=== PATIENT | male | born 1965 | race Hispanic/Latino ===

== ENCOUNTER 2018-03-14 22:23 | Emergency (ER) | payer BC ==
[2018-03-14] MEDS ORDERED: ONDANSETRON 4 MG/2 ML VIAL ONE (23:24)
[2018-03-14] MEDS ORDERED: NA CHLORIDE 0.9% 1,000 ML ONE (23:24)
[2018-03-14] MEDS ORDERED: MORPHINE 4 MG/ML SYR ONE (23:24)
[2018-03-14 23:39] LABS: Absolute Lymphocytes (CBC) 0.8 K/uL (0.7-4.9); Absolute Monocytes 0.5 K/uL (0.1-1.3); Absolute Neutrophil 6.4 K/uL (1.8-8.0); Basophils % 0.3 % (0-1.3); Eosinophils % 0.9 % (0-4.4); Hematocrit 43.5 % (39.6-49.0); Lymphocytes % 10.2 % (15.3-44.8); MCH 29.9 pg (27.0-35.0); MCV 89.9 fL (80-100); MPV 10.2 fL (7.6-11.3); Monocytes % 5.9 % (3.3-12.3); RBC Red Blood Cell Count 4.84 M/uL (4.33-5.43)
[2018-03-14 23:57] LABS: Albumin 3.7 g/dL (3.4-5.0); Bilirubin Direct 0.2 mg/dL (0-0.2); Bilirubin Total 0.6 mg/dL (0.2-1.0); Potassium 3.9 mmol/L (3.5-5.1); Protein, Total 7.3 g/dL (6.4-8.2)
--- NOTE | 2018-03-15 01:40 | EDPHYS ---
Physician Documentation [facility] Name: Sotero Em Age: 52 yrs Sex: Male : 1965 Arrival Date: 03/14/2018 Time: 22:26 Bed 6 Private MD: Yandel Mireles H ED Physician Ryland Ag HPI: 03/14 23:25 This 52 yrs old Male presents to ER via Ambulatory with complaints of Nausea, ma2 Diarrhea, Epigastric Pain. 23:25 The patient presents to the emergency department with nausea, diarrhea, abdominal pain. ma2 Onset: The symptoms/episode began/occurred gradually, 2 day(s) ago. Associated signs and symptoms: Pertinent positives: abdominal pain, diarrhea, nausea, Pertinent negatives: anorexia, constipation, fever, GI bleeding, hematuria. Severity of symptoms: At their worst the symptoms were moderate severe in the emergency department the symptoms are unchanged. The patient has experienced a previous episode. Historical: - Allergies: 22:47 No Known Allergies; bp - Home Meds: 22:47 Dexilant 60 mg oral CpDB 1 cap once daily [Active]; bp - PMHx: 22:47 Pancreatitis; High Cholesterol; bp - Immunization history:: Adult Immunizations up to date. - Social history:: Smoking status: Patient/guardian denies using tobacco, Patient/guardian denies using alcohol, Patient/guardian denies using alcohol, street drugs, The patient lives with family. - Ebola Screening: : Patient negative for fever greater than or equal to 101.5 degrees Fahrenheit, and additional compatible Ebola Virus Disease symptoms Patient denies exposure to infectious person Patient denies travel to an Ebola-affected area in the 21 days before illness onset No symptoms or risks identified at this time. - Family history:: not pertinent. ROS: 23:25 Constitutional: Negative for fever, chills, and weight loss. ma2 23:25 Abdomen/GI: Positive for nausea and vomiting, diarrhea, Negative for abdominal cramps, anorexia, rectal pain, flatulence. 23:25 All other systems are negative. Exam: 23:25 Constitutional: This is a well developed, well nourished patient who is awake, alert, ma2 and in no acute distress. Chest/axilla: Normal chest wall appearance and motion. Nontender with no deformity. No lesions are appreciated. Cardiovascular: Regular rate and rhythm with a normal S1 and S2. No gallops, murmurs, or rubs. Normal PMI, no JVD. No pulse deficits. Respiratory: Lungs have equal breath sounds bilaterally, clear to auscultation and percussion. No rales, rhonchi or wheezes noted. No increased work of breathing, no retractions or nasal flaring. MS/ Extremity: Pulses equal, no cyanosis. Neurovascular intact. Full, normal range of motion. Neuro: Awake and alert, GCS 15, oriented to person, place, time, and situation. Cranial nerves II-XII grossly intact. Motor strength 5/5 in all extremities. Sensory grossly intact. Cerebellar exam normal. Normal gait. 23:25 Abdomen/GI: Inspection: abdomen appears normal, Palpation: severe abdominal tenderness, in the right upper quadrant and left upper quadrant, Liver: no appreciated palpable abnormalities, Hernia: not appreciated. Vital Signs: 22:47 BP 137 / 94; Pulse 87; Resp 18; Temp 97; Pulse Ox 97% ; Weight 81.65 kg; Height 5 ft. 7 bp in. (170.18 cm); 23:31 BP 122 / 88; Pulse 72; Resp 16; Pulse Ox 95% ; bp 03/15 01:56 BP 119 / 78; Pulse 66; Resp 14; Temp 98.6; Pulse Ox 98% on R/A; Pain 0/10; ak1 03/14 22:47 Body Mass Index 28.19 (81.65 kg, 170.18 cm) bp MDM: 03/14 22:47 Patient medically screened. ma2 23:25 Differential diagnosis: gastritis, cholecystitis, pancreatitis, appendicitis, viral ma2 gastroenteritis, gastroenteritis. 03/15 01:37 Data reviewed: vital signs, nurses notes, lab test result(s), radiologic studies, CT ma2 scan. Counseling: I had a detailed discussion with the patient and/or guardian regarding: the historical points, exam findings, and any diagnostic results supporting the discharge/admit diagnosis, the presence of at least one elevated blood pressure reading (>120/80) during this emergency department visit, the need for outpatient follow up. Response to treatment: the patient's symptoms have markedly improved after treatment. ED course: ct showing diverticulitis, WBC wnl, vs wnl, feels better and wants to go home and will f/u with gi, although ct showing possible early SBO, this is not likely given no vomiting, he will return to ed if having any new or worsening symptoms . 03/14 23:30 Order name: Basic Metabolic Panel; Complete Time: 23:59 EDMS 03/14 23:11 Order name: CT Abd/Pelvis - W/Contrast ma2 03/14 23:30 Order name: Liver (Hepatic) Function; Complete Time: 23:59 EDMS 03/14 23:30 Order name: Lipase; Complete Time: 23:59 EDMS 03/14 23:30 Order name: Creatinine (Radiology Only); Complete Time: 23:59 EDMS 03/14 23:30 Order name: CBC with Automated Diff; Complete Time: 23:59 EDMS 03/14 22:58 Order name: IV Saline Lock; Complete Time: 23:12 ma2 03/14 22:58 Order name: Labs collected and sent; Complete Time: 23:13 ma2 Administered Medications: 03/14 23:15 Drug: NS 0.9% 1000 ml Route: IV; Rate: 1 bolus; Site: right upper arm; bp 03/15 01:50 Follow up: IV Status: Completed infusion ak1 03/14 23:15 Drug: morphine 4 mg Route: IVP; Site: right upper arm; bp 23:30 Follow up: Response: Pain is decreased bp 23:15 Drug: Zofran 4 mg Route: IVP; Site: right upper arm; bp 23:30 Follow up: Response: Nausea is decreased bp Disposition: 03/15/18 01:39 Discharged to Home. Impression: Diverticulitis of large intestine without perforation or abscess without bleeding. - Condition is Stable. - Discharge Instructions: Diverticulitis, Form - Excuse from Work, School, or Physical Activity, Form - Return To Work. - Prescriptions for Flagyl 500 mg Oral Tablet - take 4 tablet by ORAL route one time for 1 day; 4 tablet. Tylenol- Codeine #3 300-30 mg Oral Tablet - take 2 tablet by ORAL route every 6 hours As needed; 30 tablet. Cipro 500 mg Oral Tablet - take 1 tablet by ORAL route every 12 hours for 7 days; 14 tablet. - Family Work Release, Medication Reconciliation Form, Thank You Letter, Antibiotic Education, Prescription Opioid Use form. - Follow up: Private Physician; When: Tomorrow; Reason: Continuance of care. - Problem is new. - Symptoms have improved. Signatures: Dispatcher [employer] EDNC Luciana Yip RN RN ak1 Bill Corona RN RN Ryland Liriano MD MD ma2 Corrections: (The following items were deleted from the chart) 23:46 23:33 BASIC METABOLIC PANEL+C.LAB.BRZ ordered. EDMS EDMS 23:46 23:33 HEPATIC FUNCTION+C.LAB.BRZ ordered. EDMS EDMS 23:47 23:33 CBC+H.LAB.BRZ ordered. EDMS EDMS 23:47 23:33 Creatinine for Radiology+C.LAB.BRZ ordered. EDMS EDMS 23:48 23:33 LIPASE+C.LAB.BRZ ordered. EDNC EDMS 03/15 01:56 01:39 03/15/2018 01:39 Discharged to Home. Impression: Diverticulitis of large ak1 intestine without perforation or abscess without bleeding. Condition is Stable. Forms are Medication Reconciliation Form, Thank You Letter, Antibiotic Education, Prescription Opioid Use. Follow up: Private Physician; When: Tomorrow; Reason: Continuance of care. Problem is new. Symptoms have improved. ma2
--- NOTE | 2018-03-15 01:40 | ER ---
Nurse's Notes [facility] Name: Sotero Em Age: 52 yrs Sex: Male : 1965 Arrival Date: 03/14/2018 Time: 22:26 Bed 6 Private MD: Yandel Mireles H Diagnosis: Diverticulitis of large intestine without perforation or abscess without bleeding Presentation: 03/14 22:30 Presenting complaint: Patient states: EPIGASTRIC PAIN WITH FREQUENT VOMITING AND bp DIARRHEA. Transition of care: patient was not received from another setting of care. Onset of symptoms was March 14, 2018 at 21:00. Risk Assessment: Do you want to hurt yourself or someone else? Patient reports no desire to harm self or others. Initial Sepsis Screen: Does the patient meet any 2 criteria? No. Patient's initial sepsis screen is negative. Does the patient have a suspected source of infection? No. Patient's initial sepsis screen is negative. Care prior to arrival: None. 22:30 Method Of Arrival: Ambulatory bp 22:30 Acuity: YOSEPH 3 bp Triage Assessment: 22:47 General: Appears in no apparent distress. uncomfortable, slender, Behavior is bp cooperative, appropriate for age, anxious. Pain: Complains of pain in epigastric area. EENT: No deficits noted. Neuro: Level of Consciousness is awake, alert, obeys commands, Oriented to person, place, time, situation, Appropriate for age. Cardiovascular: Rhythm is sinus rhythm. Respiratory: Airway is patent Respiratory effort is even, unlabored, Respiratory pattern is regular, symmetrical. GI: Abdomen is non-distended, Reports upper abdominal pain, diarrhea, nausea, vomiting. : No signs and/or symptoms were reported regarding the genitourinary system. Derm: No deficits noted. Musculoskeletal: Circulation, motion, and sensation intact. Range of motion: intact in all extremities. Historical: - Allergies: 22:47 No Known Allergies; bp - Home Meds: 22:47 Dexilant 60 mg oral CpDB 1 cap once daily [Active]; bp - PMHx: 22:47 Pancreatitis; High Cholesterol; bp - Immunization history:: Adult Immunizations up to date. - Social history:: Smoking status: Patient/guardian denies using tobacco, Patient/guardian denies using alcohol, Patient/guardian denies using alcohol, street drugs, The patient lives with family. - Ebola Screening: : Patient negative for fever greater than or equal to 101.5 degrees Fahrenheit, and additional compatible Ebola Virus Disease symptoms Patient denies exposure to infectious person Patient denies travel to an Ebola-affected area in the 21 days before illness onset No symptoms or risks identified at this time. - Family history:: not pertinent. Screenin:50 Abuse screen: Denies threats or abuse. Denies injuries from another. Nutritional bp screening: No deficits noted. Tuberculosis screening: No symptoms or risk factors identified. Fall Risk None identified. Assessment: 22:49 General: SEE TRIAGE NOTE. 52YO HM P/W EPIGASTRIC PAIN AND NAUSEA, VOMITING AND bp DIARRHEA, WORSE x1 HR. PT RECENTLY SEEN GI AND DX WITH PANCREATITIS. Vital Signs: 22:47 BP 137 / 94; Pulse 87; Resp 18; Temp 97; Pulse Ox 97% ; Weight 81.65 kg; Height 5 ft. 7 bp in. (170.18 cm); 23:31 BP 122 / 88; Pulse 72; Resp 16; Pulse Ox 95% ; bp 03/15 01:56 BP 119 / 78; Pulse 66; Resp 14; Temp 98.6; Pulse Ox 98% on R/A; Pain 0/10; ak1 03/14 22:47 Body Mass Index 28.19 (81.65 kg, 170.18 cm) bp ED Course: 03/14 22:26 Patient arrived in ED. am2 22:26 Yandel Mireles DO is Private Physician. am2 22:41 Ryland Ag MD is Attending Physician. ma2 22:44 Bill Corona, MABLE is Primary Nurse. bp 22:45 Triage completed. bp 22:47 Arm band placed on. bp 22:50 Patient has correct armband on for positive identification. Bed in low position. Call bp light in reach. Side rails up X2. Adult w/ patient. 23:00 Inserted saline lock: 20 gauge in right upper arm, using aseptic technique. Blood bp collected. 03/15 00:[address] via wheelchair. kw1 00:25 CT Abd/Pelvis - W/Contrast In Process Unspecified. EDMS 00:26 CT completed. Patient tolerated procedure well. Patient moved back from CT. kw1 01:40 No provider procedures requiring assistance completed. bp 01:49 IV discontinued, intact, bleeding controlled, No redness/swelling at site. Pressure ak1 dressing applied. Administered Medications: 03/14 23:15 Drug: NS 0.9% 1000 ml Route: IV; Rate: 1 bolus; Site: right upper arm; bp 03/15 01:50 Follow up: IV Status: Completed infusion ak1 03/14 23:15 Drug: morphine 4 mg Route: IVP; Site: right upper arm; bp 23:30 Follow up: Response: Pain is decreased bp 23:15 Drug: Zofran 4 mg Route: IVP; Site: right upper arm; bp 23:30 Follow up: Response: Nausea is decreased bp Outcome: 03/15 01:39 Discharge ordered by . angelia 01:49 Discharged to home ambulatory, with family. ak1 01:49 Condition: good 01:49 Discharge instructions given to patient, family, Instructed on discharge instructions, follow up and referral plans. no drinking with medication, no driving heavy equipment, medication usage, Demonstrated understanding of instructions, follow-up care, medications, Prescriptions given X 3. 01:56 Patient left the ED. ak1 Signatures: Dispatcher [employer] EDMS Luciana Yip RN RN ak1 Emani Alex Brian, RN RN bp Wilhelm, Kimberly kw1 Ryland Ag MD MD ma2
--- NOTE | 2018-03-15 08:45 | RAD REPORT ---
EXAM DESCRIPTION: CT - Abdomen Pelvis W Contrast - 03/15/2018 4:00 am CLINICAL HISTORY: Abdominal pain epigastric pain and diarrhea COMPARISON: 2015 TECHNIQUE: Computed axial tomography of the abdomen pelvis was obtained. 100 cc Isovue-300 was admin istered intravenously. Oral contrast was not requested which limits evaluation of bowel.Preliminary r eport was generated by [employer] and reviewed prior to this dictation All CT scans are performed using dose optimization technique as appropriate and may include automated exposure control or mA/KV adjustment according to patient size. FINDINGS: Fatty infiltration of the liver is present. A 27 millimeters cyst is minimally enlarged. The spleen, pancreas and adrenals are unremarkable. The right kidney is small with cortical thinning. 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 The left kidney is compensatory hypertrophy. Small parapelvic cysts are present without hydronephrosi s. The appendix is normal. Diverticula stem from the colon. Minimal stranding is present adjacent to the proximal sigmoid colon. Free air is not noted. An abscess is not seen. The stomach is mildly distended. Several small bowel loops are upper limits normal caliber. IMPRESSION: Minimal sigmoid diverticulitis Mild gastric distention
== END 2018-03-15 01:56 | disposition home or self-care (01) ==
LOC: ER 22:23
DX: K57.32 Diverticulitis of large intestine without perforation or abscess without bleeding (principal); E78.00 Pure hypercholesterolemia, unspecified
CPT/HCPCS: 36415; 74177; 80048; 80076; 83690; 85025; 96361; 96374; 96375; 99285; J2405; J7030; Q9967

== ENCOUNTER 2018-05-09 10:14 | Day surgery (SDC) | payer BC ==
--- NOTE | 2018-05-06 11:08 | RAD REPORT ---
EXAM DESCRIPTION: RAD - Chest Pa And Lat (2 Views) - 05/06/2018 11:02 am CLINICAL HISTORY: preop Chest pain. COMPARISON: No comparisons FINDINGS: The lungs are clear. The heart is normal in size. No displaced fractures. IMPRESSION: No acute or concerning finding suspected.
[2018-05-06 11:42] LABS: Potassium 4.1 mmol/L (3.5-5.1)
[2018-05-06 11:43] LABS: Absolute Lymphocytes (CBC) 1.3 K/uL (0.7-4.9); Absolute Monocytes 0.5 K/uL (0.1-1.3); Absolute Neutrophil 3.1 K/uL (1.8-8.0); Basophils % 0.5 % (0-1.3); Eosinophils % 1.3 % (0-4.4); Hematocrit 45.4 % (39.6-49.0); Lymphocytes % 26.7 % (15.3-44.8); MCH 30.4 pg (27.0-35.0); MPV 10.4 fL (7.6-11.3); Monocytes % 9.7 % (3.3-12.3)
--- NOTE | 2018-05-06 12:58 | EKG ---
Test Date: 2018-05-06 Test Time: 10:16:56 Scanning Coordinator: MUMTAZ MEASUREMENT RESULTS: Intervals: Rate: 64 AL: 170 QRSD: 92 QT: 368 QTc: 379 Philpot: P: 39 AL: 170 QRS: 74 T: 40 INTERPRETIVE STATEMENTS: Normal sinus rhythm with sinus arrhythmia Normal ECG No previous ECG available for comparison Electronically Signed On 05-06-18 12:57:35 POULTRY HATCHERY MANAGER by Enrique Corbin
[2018-05-09] MEDS ORDERED: CEFAZOLIN/SWI 1gm 1 GM/10 ML SYR ONE (10:44)
[2018-05-09] MEDS ORDERED: Ringers Lactate 1,000 ML IV ONE (10:44)
[2018-05-09] MEDS ORDERED: MIDAZOLAM HCL 2 MG/2 ML INJ ONE (13:46)
[2018-05-09] MEDS ORDERED: PROPOFOL 200 MG/20 ML VIAL IV ONE (13:46)
[2018-05-09] MEDS ORDERED: FENTANYL CITR 100 MCG/2 ML ONE (13:46)
[2018-05-09] MEDS ORDERED: LIDOCAINE 2% MPF 5 ML VIAL ONE (13:47)
[2018-05-09] MEDS ORDERED: GLYCOPYRROLATE 0.2 MG/ML SYR ONE (14:29)
[2018-05-09] MEDS ORDERED: EPHEDRINE SULF 50 MG/10 ML SYR ONE (14:36)
--- NOTE | 2018-05-09 14:43 | P.BOP ---
Preoperative diagnosis: lookback coordinator mass Postoperative diagnosis: lookback coordinator intramuscular mass Primary procedure: Excisional biopsy of back INTRAMUSCULAR mass 10x9.5 cm Spindle Frame Carver: KILEY AHMADI (RN DOCUMENT IMPROVEMENT SPECIALIST) Estimated blood loss: <20cc Specimen: mass Findings: intramuscular mass deep to muscle, fascia of muscle closed Anesthesia: General Complications: None Transferred to: Recovery Room Condition: Good
[2018-05-09] MEDS ORDERED: KETOROLAC 30 MG/ML INJ ONE (14:47)
[2018-05-09] MEDS ORDERED: CODEINE 30MG/APAP 300MG TAB ONE (16:36)
--- NOTE | 2018-05-11 00:51 | OP ---
Date of Procedure: 05/09/2018 Surgeon: Edward Burgos MD Economics Consultant: Karen Sánchez. Diagnosis: covering machine tender intramuscular mass. Procedure: Excisional biopsy of back intramuscular mass 10 x 9.5 cm. Specimen: Mass. Findings: The patient has an intramuscular mass deep to the muscle of the back between the midline a nd the scapula. The fascia was closed also as part of a layered closure. Anesthesia: General. Indications: This is a case of a 52-year-old patient with a back mass, increasing pain, discomfort. It is getting bigger, so the benefits, alternatives, and risks of excision were fully explained, whi ch include but are not limited to infection, bleeding, damage to adjacent structures, anesthesia comp lication, recurrence, AK, and even . He also understands this may not relieve any symptoms. He might need more than one surgical intervention. He signed a consent. The area of concern was marke d by me and the patient in the holding room. Description Of Procedure: The patient was brought to the operating room, placed in supine position. Anesthesia was done without complication. The back area was prepped and draped in usual sterile fas hion after the patient was placed in lateral decubitus position with proper protection. After that, a time-out was called. Incision was made over the area of concern. Incision was carried down to sub cutaneous tissue. We noticed that the patient's mass, it is not in the subcutaneous tissue, it goes into the muscle. We have to open the muscle of the back area between the scapula, split the fibers, not cut it, and then we noticed that 10% of that was intramuscular to 15%, and then after that was ev en deep to muscle to the deep cavities. We were able to split the muscle fibers without cutting and allowed by blunt dissection trying to get this fatty tumor out of that area and it was completely rem antony with hemostasis obtained. After that, we proceeded to approximate the muscle fibers with chromi c and then the fascia was approximated once again, then the subcutaneous tissue, and then the skin in layers. Sponge count and instrument counts were correct. The patient tolerated the procedure well. The patient was sent to recovery in stable condition. ROSA/JACE Voice ID: [id number] Report ID: [id number]
--- NOTE | 2018-05-11 00:51 | DS ---
Date of Discharge: 05/09/2018 Diagnosis: Intramuscular mass. Procedure: Excisional biopsy of intramuscular back mass 10 x 9.5 cm. Disposition: Home. Activity: As tolerated. No heavy lifting. Followup: Follow up in my office in 1 week. Call for appointment on [phone]. Keep area dry for 48 hours, then may shower. Medications: See orders. ROSA/JACE Voice ID: [id number] Report ID: [id number]
== END 2018-05-09 16:56 | disposition home or self-care (01) ==
LOC: OR 10:14
PROVIDERS: ATTEND Surgery
PROC: 0KBG0ZZ Excision of Left Trunk Muscle, Open Approach (ICD-10-PCS; principal; 2018-05-09 12:00)
DX: D17.9 Benign lipomatous neoplasm, unspecified (principal); E78.00 Pure hypercholesterolemia, unspecified; K21.9 Gastro-esophageal reflux disease without esophagitis; Z80.9 Family history of malignant neoplasm, unspecified; Z83.3 Family history of diabetes mellitus; Z82.49 Family history of ischemic heart disease and other diseases of the circulatory system
CPT/HCPCS: 36415; 71046; 80048; 85025; 88304; 88305; 93005; J0690; J2250; J2704; J3010

== ENCOUNTER 2019-03-11 07:05 | Emergency (ER) | payer BC ==
[2019-03-11] MEDS ORDERED: IBUPROFEN 400 MG TAB ONE (07:34)
--- NOTE | 2019-03-11 07:46 | ER ---
Nurse's Notes [facility] Name: Sotero Em Age: 53 yrs Sex: Male : 1965 Arrival Date: 03/11/2019 Time: 07:07 Bed 13 Private MD: Diagnosis: Sprain of right acromioclavicular joint Presentation: 03/11 07:08 Presenting complaint: Patient states: "I fell last night, I was on a 2 ft step stool aa5 and landed onto my right side". Pt c/o pain to right shoulder pain that is aggravated by any movement of right arm. 07:08 Transition of care: patient was not received from another setting of care. Onset of aa5 symptoms was February 2019. Risk Assessment: Do you want to hurt yourself or someone else? Patient reports no desire to harm self or others. Initial Sepsis Screen: Does the patient meet any 2 criteria? No. Patient's initial sepsis screen is negative. Does the patient have a suspected source of infection? No. Patient's initial sepsis screen is negative. Care prior to arrival: None. 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 - Social history:: Smoking status: Patient/guardian denies using tobacco, Patient/guardian denies using alcohol, street drugs, The patient lives with family. - Ebola Screening: : No symptoms or risks identified at this time. - Family history:: not pertinent. Screenin:10 Abuse screen: Denies threats or abuse. Nutritional screening: No deficits noted. rb1 Tuberculosis screening: No symptoms or risk factors identified. Fall Risk Fall in past 12 months (25 points). No secondary diagnosis (0 pts). No IV (0 pts). Ambulatory Aid- None/Bed Rest/Nurse Assist (0 pts). Gait- Normal/Bed Rest/Wheelchair (0 pts) Mental Status- Oriented to own ability (0 pts). Total Reyes Fall Scale indicates Low Risk Score (25-44 pts). Fall prevention measures have been instituted. Side Rails Up X 2 Placed close to Nursing Station 1:1 attendant Assigned to Pt. Frequent Obs/Assesments occuring As available Patient and Family Educated on Fall Prevention Program and strategies. Assessment: 07:10 General: Appears uncomfortable, Behavior is calm, cooperative. Pain: Complains of pain rb1 in right shoulder Pain currently is 9 out of 10 on a pain scale. Pain began 1 day ago. Neuro: Level of Consciousness is awake, alert, obeys commands, Oriented to person, place, time, situation. Cardiovascular: Capillary refill < 3 seconds is brisk in bilateral fingers. Respiratory: Airway is patent Respiratory effort is even, unlabored, Respiratory pattern is regular, symmetrical. GI: No signs and/or symptoms were reported involving the gastrointestinal system. : No signs and/or symptoms were reported regarding the genitourinary system. Derm: Skin is pink, warm \\T\\ dry. Musculoskeletal: Range of motion: limited in right arm. 07:57 Reassessment: Patient appears in no apparent distress at this time. No changes from rb1 previously documented assessment. Vital Signs: 07:10 BP 128 / 87; Pulse 85; Resp 16 S; Temp 98.6(O); Pulse Ox 97% on R/A; Weight 74.84 kg aa5 (R); Height 5 ft. 7 in. (170.18 cm) (R); Pain 7/10; 07:57 BP 128 / 87; Pulse 81; Resp 15; Pulse Ox 97% on R/A; Pain 9/10; rb1 07:10 Body Mass Index 25.84 (74.84 kg, 170.18 cm) aa5 ED Course: 07:07 Patient arrived in ED. ds1 07:08 Arm band placed on Patient placed in an exam room, on a stretcher. aa5 07:10 Patient has correct armband on for positive identification. Bed in low position. Call rb1 light in reach. Side rails up X 1. Pulse ox on. NIBP on. 07:11 Ryland Ag MD is Attending Physician. ma2 07:17 Triage completed. aa5 07:29 Earlene Sandoval, RN is Primary Nurse. rb1 07:31 Shoulder Right (2 View) XRAY In Process Unspecified. EDMS 07:44 Ace Bedoya MD is Referral Physician. ma2 07:58 No provider procedures requiring assistance completed. Patient did not have IV access rb1 during this emergency room visit. Administered Medications: 07:37 Drug: Ibuprofen 400 mg Route: PO; rb1 07:57 Follow up: Response: No adverse reaction rb1 Outcome: 07:46 Discharge ordered by . ma2 07:58 Discharged to home ambulatory. rb1 07:58 Condition: stable 07:58 Discharge instructions given to patient, Instructed on discharge instructions, follow up and referral plans. medication usage, Demonstrated understanding of instructions, follow-up care, medications, Prescriptions given X 1. 07:59 Patient left the ED. rb1 Signatures: Dispatcher [employer] [facility] Yaa Christopher ds1 Lesa Hernandez RN RN aa5 Earlene Sandoval RN RN rb1 Ryland Ag MD MD ma2
--- NOTE | 2019-03-11 07:47 | EDPHYS ---
Physician Documentation [facility] Name: Sotero Em Age: 53 yrs Sex: Male : 1965 Arrival Date: 03/11/2019 Time: 07:07 Bed 13 Private MD: ED Physician Ryland Ag HPI: 03/11 07:29 This 53 yrs old Male presents to ER via Ambulatory with complaints of Fall ma2 Injury, Arm Pain. 07:29 Onset: The symptoms/episode began/occurred suddenly, 1 day(s) ago. Associated injuries: ma2 The patient sustained right arm. Severity of symptoms: At their worst the symptoms were moderate, in the emergency department the symptoms are unchanged. The patient has experienced a previous episode. 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 - Social history:: Smoking status: Patient/guardian denies using tobacco, Patient/guardian denies using alcohol, street drugs, The patient lives with family. - Ebola Screening: : No symptoms or risks identified at this time. - Family history:: not pertinent. ROS: 07:29 Constitutional: Negative for fever, chills, and weight loss, Back: Negative for injury ma2 and pain. 07:29 All other systems are negative. Exam: 07:29 Constitutional: This is a well developed, well nourished patient who is awake, alert, ma2 and in no acute distress. Neck: Trachea midline, no thyromegaly or masses palpated, and no cervical lymphadenopathy. Supple, full range of motion without nuchal rigidity, or vertebral point tenderness. No Meningismus. Chest/axilla: Normal chest wall appearance and motion. Nontender with no deformity. No lesions are appreciated. Cardiovascular: Regular rate and rhythm with a normal S1 and S2. No gallops, murmurs, or rubs. Normal PMI, no JVD. No pulse deficits. Respiratory: Lungs have equal breath sounds bilaterally, clear to auscultation and percussion. No rales, rhonchi or wheezes noted. No increased work of breathing, no retractions or nasal flaring. Abdomen/GI: Soft, non-tender, with normal bowel sounds. No distension or tympany. No guarding or rebound. No evidence of tenderness throughout. Back: No spinal tenderness. No costovertebral tenderness. Full range of motion. Skin: Warm, dry with normal turgor. Normal color with no rashes, no lesions, and no evidence of cellulitis. Neuro: Awake and alert, GCS 15, oriented to person, place, time, and situation. Cranial nerves II-XII grossly intact. Motor strength 5/5 in all extremities. Sensory grossly intact. Cerebellar exam normal. Normal gait. 07:29 Musculoskeletal/extremity: Extremities: right shoulder pain and ttp , ROM: Circulation is intact in all extremities. Pulses: are normal with no appreciated deficits, Sensation intact. DVT Exam: No signs of deep vein thrombosis. Nails: Vital Signs: 07:10 BP 128 / 87; Pulse 85; Resp 16 S; Temp 98.6(O); Pulse Ox 97% on R/A; Weight 74.84 kg aa5 (R); Height 5 ft. 7 in. (170.18 cm) (R); Pain 7/10; 07:57 BP 128 / 87; Pulse 81; Resp 15; Pulse Ox 97% on R/A; Pain 9/10; rb1 07:10 Body Mass Index 25.84 (74.84 kg, 170.18 cm) aa5 MDM: 07:11 Patient medically screened. [facility] 07:29 Differential diagnosis: contusion, fracture, sprain, strain. [facility] 07:43 Data reviewed: vital signs, nurses notes. Counseling: I had a detailed discussion with [facility] the patient and/or guardian regarding: the historical points, exam findings, and any diagnostic results supporting the discharge/admit diagnosis, the presence of at least one elevated blood pressure reading (>120/80) during this emergency department visit, the need for outpatient follow up. Response to treatment: the patient's symptoms have markedly improved after treatment. 03/11 07:15 Order name: Shoulder Right (2 View) XRAY aa5 Administered Medications: 07:37 Drug: Ibuprofen 400 mg Route: PO; rb1 07:57 Follow up: Response: No adverse reaction rb1 Disposition: 03/11/19 07:46 Discharged to Home. Impression: Sprain of right acromioclavicular joint. - Condition is Stable. - Discharge Instructions: Shoulder Pain, [id number]. - Prescriptions for Tylenol- Codeine #3 300-30 mg Oral Tablet - take 2 tablet by ORAL route every 6 hours As needed; 30 tablet. - Medication Reconciliation Form, Thank You Letter, Antibiotic Education, Prescription Opioid Use form. - Follow up: Private Physician; When: Tomorrow; Reason: Continuance of care. Follow up: Ace Bedoya MD; When: Tomorrow; Reason: Continuance of care. Signatures: Dispatcher [employer] EDLesa Mars, RN RN aa5 Earlene Sandoval RN RN rb1 Ryland Ag MD MD ma2 Corrections: (The following items were deleted from the chart) 07:59 07:46 03/11/2019 07:46 Discharged to Home. Impression: Sprain of right rb1 acromioclavicular joint. Condition is Stable. Forms are Medication Reconciliation Form, Thank You Letter, Antibiotic Education, Prescription Opioid Use. Follow up: Private Physician; When: Tomorrow; Reason: Continuance of care. Follow up: Ace Bedoya; When: Tomorrow; Reason: Continuance of care. ma2
[2019-03-11 08:04] VITALS: BP 128/87; TEMP 98.6; O2SAT 97
--- NOTE | 2019-03-11 10:59 | RAD REPORT ---
EXAM DESCRIPTION: RAD - Shoulder Right 2 View - 03/11/2019 7:30 am CLINICAL HISTORY: pain/fall COMPARISON: No comparisons FINDINGS: Mild AC joint and glenohumeral joint arthritic changes are present. No fracture or disloca tion.
== END 2019-03-11 07:59 | disposition home or self-care (01) ==
LOC: ER 07:05
DX: S43.51XA Sprain of right acromioclavicular joint, initial encounter (principal); W17.89XA Other fall from one level to another, initial encounter; Y93.89 Activity, other specified; Y92.9 Unspecified place or not applicable
CPT/HCPCS: 99284

== ENCOUNTER → 2023-06-12 | Emergency (ER) | payer BC ==
[~2023-06-12] MED LIST: dexAMETHasone 4 MG TAB ONE
--- NOTE | 2023-06-13 02:35 | ER ---
Nurse's Notes [facility] Name: Sotero Em Age: 58 yrs Sex: Male : 1965 Arrival Date: 06/12/2023 Time: 22:25 Bed 12 Private MD: Diagnosis: Acute bronchitis due to respiratory syncytial virus;Acute upper respiratory infection, [id number] Presentation: 06/12 23:17 Chief complaint: Patient states: Coughing especially at night, having trouble sleeping, vc1 pain in throat. Coronavirus screen: Vaccine status: Patient reports receiving the 2nd dose of the covid vaccine. cough unrelated to allergies, shortness of breath, Client presents with at least one sign or symptom that may indicate coronavirus-19. Ebola Screen: Patient negative for fever greater than or equal to 101.5 degrees Fahrenheit, and additional compatible Ebola Virus Disease symptoms Patient denies exposure to infectious person. Patient denies travel to an Ebola-affected area in the 21 days before illness onset. No symptoms or risks identified at this time. Risk Assessment: Do you want to hurt yourself or someone else? Patient reports no desire to harm self or others. Note times 1 week. Onset of symptoms was June 05, 2023. 23:17 Method Of Arrival: Ambulatory vc1 23:17 Acuity: YOSEPH 4 vc1 23:17 Initial Sepsis Screen: Does the patient meet any 2 criteria? No. Patient's initial vc1 sepsis screen is negative. Does the patient have a suspected source of infection? No. Patient's initial sepsis screen is negative. Triage Assessment: 23:30 General: Appears in no apparent distress. uncomfortable, ill, Behavior is calm, vc1 cooperative, appropriate for age. Pain: Complains of pain in throat Pain currently is 5 out of 10 on a pain scale. EENT: Reports pain when swallowing. Neuro: Level of Consciousness is awake, alert, obeys commands, Oriented to person, place, time, situation, Appropriate for age. Cardiovascular: No deficits noted. Respiratory: Airway is patent Respiratory effort is even, unlabored, Respiratory pattern is regular, symmetrical. Respiratory: Reports cough that is. GI: No deficits noted. No signs and/or symptoms were reported involving the gastrointestinal system. : No deficits noted. No signs and/or symptoms were reported regarding the genitourinary system. Derm: No deficits noted. No signs and/or symptoms reported regarding the dermatologic system. Musculoskeletal: No deficits noted. No signs and/or symptoms reported regarding the musculoskeletal system. 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 - Social history:: Smoking status: Patient denies any tobacco usage or history of. Screenin:30 [facility] ED Fall Risk Assessment (Adult) History of falling in the last 3 months, vc1 including since admission No falls in past 3 months (0 pts) Confusion or Disorientation No (0 pts) Intoxicated or Sedated No (0 pts) Impaired Gait No (0 pts) Mobility Assist Device Used No (0 pt) Altered Elimination No (0 pt) Score/Fall Risk Level 0 - 2 = Low Risk Oriented to surroundings, Maintained a safe environment, Educated pt \T\ family on fall prevention, incl call for assistance when getting out of bed. Abuse screen: Denies threats or abuse. Nutritional screening: No deficits noted. Tuberculosis screening: No symptoms or risk factors identified. Assessment: 06/13 01:00 Reassessment: Patient and/or family updated on plan of care and expected duration. Pain vc1 level reassessed. Patient is alert, oriented x 3, equal unlabored respirations, skin warm/dry/pink. Patient is alert/active/playful, equal unlabored respirations, skin warm/dry/pink. 02:00 Reassessment: No changes from previously documented assessment. Patient and/or family vc1 updated on plan of care and expected duration. Pain level reassessed. Patient is alert, oriented x 3, equal unlabored respirations, skin warm/dry/pink. 03:00 Reassessment: No changes from previously documented assessment. Patient and/or family vc1 updated on plan of care and expected duration. Pain level reassessed. Patient is alert, oriented x 3, equal unlabored respirations, skin warm/dry/pink. 03:00 Respiratory: Airway is patent Respiratory effort is even, unlabored, Respiratory vc1 pattern is regular, symmetrical, Breath sounds are clear. Vital Signs: 06/12 23:17 Weight 79.38 kg; Height 5 ft. 7 in. ; Pain 7/10; vc1 23:20 BP 132 / 83; Pulse 84; Resp 18; Temp 98.4; Pulse Ox 98% ; vc1 06/13 02:30 BP 128 / 80; Pulse 85; Resp 18; Pulse Ox 98% ; vc1 06/12 23:17 Body Mass Index 27.41 (79.38 kg, 170.18 cm) vc1 06/12 23:17 Pain Scale: Adult vc1 ED Course: 06/12 22:27 Patient arrived in ED. [id number] 23:19 Triage completed. vc1 23:19 Arm band placed on left wrist. vc1 23:23 Sabino Rice is Attending Physician. ci 06/13 00:22 Chest Single View XRAY In Process Unspecified. EDMS 03:16 No provider procedures requiring assistance completed. Patient did not have IV access vc1 during this emergency room visit. Administered Medications: 03:06 Drug: Dexamethasone PO 6 mg PO once Route: PO; vc1 03:06 Follow up: Response: Medication administered at discharge. vc1 Medication: 03:10 VIS not applicable for this client. vc1 Outcome: 02:35 Discharge ordered by MD. ci 03:16 Discharged to home ambulatory, vc1 03:16 Condition: good 03:16 Discharge instructions given to patient, Instructed on discharge instructions, follow up and referral plans. medication usage, Demonstrated understanding of instructions, follow-up care, medications, Prescriptions given X 1, 03:22 Patient left the ED. vc1 Signatures: Dispatcher [employer] EDCA Soni Aldanaj6 Claudia Murillo, RN RN vc1 Sabino Rice ci
--- NOTE | 2023-06-13 02:35 | EDPHYS ---
Physician Documentation [facility] Name: Sotero Em Age: 58 yrs Sex: Male : 1965 Arrival Date: 06/12/2023 Time: 22:25 Bed 12 Private MD: ED Physician Sabino Rice HPI: 06/12 23:46 This 58 yrs old Male presents to ER via Ambulatory with complaints of Cough, ci Sore Throat. 23:46 . Patient is a 58-year-old male with a PMH hyperlipidemia, pancreatitis who presents to the ED with chief complaint of URI symptoms that began 2 weeks ago. He endorses cough, congestion, sore throat. Denies wheezing, fever, shortness of breath, chest pain. Denies any sick contacts.. 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 - Social history:: Smoking status: Patient denies any tobacco usage or history of. ROS: 23:46 Constitutional: Positive for Negative for chills, fatigue, fever, ci 23:46 ENT: Positive for sinus congestion, sore throat, 23:46 Respiratory: Positive for cough, Negative for shortness of breath, wheezing, 23:46 Back: Positive for 23:46 Back: ci 23:46 Back: 23:46 Back: Exam: 23:46 Constitutional: This is a well developed, well nourished patient who is awake, alert, ci and in no acute distress. Head/Face: Normocephalic, atraumatic. Eyes: Pupils equal round and reactive to light, extra-ocular motions intact. Lids and lashes normal. Conjunctiva and sclera are non-icteric and not injected. Cornea within normal limits. Periorbital areas with no swelling, redness, or edema. ENT: Nares patent. No nasal discharge, no septal abnormalities noted. Tympanic membranes are normal and external auditory canals are clear. Oropharynx with no redness, swelling, or masses, exudates, or evidence of obstruction, uvula midline. Mucous membranes moist. Neck: Trachea midline, no thyromegaly or masses palpated, and no cervical lymphadenopathy. Supple, full range of motion without nuchal rigidity, or vertebral point tenderness. No Meningismus. Chest/axilla: Normal chest wall appearance and motion. Nontender with no deformity. No lesions are appreciated. Cardiovascular: Regular rate and rhythm with a normal S1 and S2. No gallops, murmurs, or rubs. No JVD. No pulse deficits. Respiratory: Lungs have equal breath sounds bilaterally, clear to auscultation and percussion. No rales, rhonchi or wheezes noted. No increased work of breathing, no retractions or nasal flaring. Abdomen/GI: Soft, non-tender, with normal bowel sounds. No distension or tympany. No guarding or rebound. No evidence of tenderness throughout. Back: No spinal tenderness. No costovertebral tenderness. Full range of motion. Skin: Warm, dry with normal turgor. Normal color with no rashes, no lesions, and no evidence of cellulitis. MS/ Extremity: Pulses equal, no cyanosis. Neurovascular intact. Full, normal range of motion. Neuro: Awake and alert, GCS 15, oriented to person, place, time, and situation. Cranial nerves II-XII grossly intact. Motor strength 5/5 in all extremities. Sensory grossly intact. Cerebellar exam normal. Normal gait. Psych: Awake, alert, with orientation to person, place and time. Behavior, mood, and affect are within normal limits. Vital Signs: 23:17 Weight 79.38 kg; Height 5 ft. 7 in. ; Pain 7/10; vc1 23:20 BP 132 / 83; Pulse 84; Resp 18; Temp 98.4; Pulse Ox 98% ; vc1 06/13 02:30 BP 128 / 80; Pulse 85; Resp 18; Pulse Ox 98% ; vc1 06/12 23:17 Body Mass Index 27.41 (79.38 kg, 170.18 cm) vc1 06/12 23:17 Pain Scale: Adult vc1 MDM: 06/12 23:27 Patient medically screened. ci 23:46 Differential Diagnosis: Bronchitis Influenza Upper Respiratory Infection Sinusitis ci Viral Syndrome Pneumonia. Data reviewed: vital signs, nurses notes. ED course: Patient presents with URI symptoms x 2 weeks. Will obtain viral swabs, pneumonia. Uvula is midline, no [employer]. Patient has no meningeal signs. 06/13 01:20 Awaiting: X-ray results. ci 01:50 Awaiting: X-ray results. ci 06/12 23:33 Order name: COVID-19 SARS RT PCR; Complete Time: 01:49 ci 06/13 01:49 Interpretation: Abnormal: SARSCOV2 RT PCR POSITIVE. ci 06/12 23:33 Order name: Flu; Complete Time: 01:19 ci 06/12 23:33 Order name: RSV; Complete Time: 01:19 ci 06/13 01:19 Interpretation: Abnormal: RSV RSV ---- POSITIVE for RSV antigen. ci 06/12 23:33 Order name: Rapid Strep; Complete Time: 01:19 ci 06/13 00:57 Order name: Throat Culture EDMS 06/12 23:33 Order name: Chest Single View XRAY; Complete Time: 02:31 ci 06/13 02:31 Interpretation: No acute disease: No acute abnormality. ci Administered Medications: 03:06 Drug: Dexamethasone PO 6 mg PO once Route: PO; vc1 03:06 Follow up: Response: Medication administered at discharge. vc1 Disposition Summary: 06/13/23 02:35 Discharge Ordered Notes: Location: Home ci Condition: Stable ci Diagnosis - Acute bronchitis due to respiratory syncytial virus ci - Acute upper respiratory infection, unspecified - COVID-19 ci Followup: ci - With: Private Physician - When: 1 - 2 days - Reason: Recheck today's complaints, Re-evaluation by your physician Discharge Instructions: - Discharge Summary Sheet ci - Upper Respiratory Infection, Adult, [id number] ci Forms: - Medication Reconciliation Form ci - Thank You Letter ci - Antibiotic Education ci - Prescription Opioid Use ci - Patient Portal Instructions ci - Leadership Thank You Letter ci Prescriptions: - Tessalon Perles 100 mg Oral Capsule - take 1 capsule ORAL route every 8 hours As needed; 15 capsule; Refills: 0, ci Product Selection Permitted Signatures: Dispatcher [employer] EDMD Claudia Murillo RN RN vc1 Sabino Rice ci
[2023-06-13 04:14] VITALS: BP 128/80; TEMP 98.4; O2SAT 98
--- NOTE | 2023-06-14 11:12 | RAD REPORT ---
EXAM DESCRIPTION: RAD - Chest Single View - 06/13/2023 12:20 am CLINICAL HISTORY: COUGH COMPARISON: None TECHNIQUE: Single AP view of the chest. FINDINGS: Lung volumes adequate. Cardiac silhouette is normal in size. No pneumothorax. No large pleural effusion. No focal consolidation. No acute bony finding. IMPRESSION: No evidence of acute cardiopulmonary disease. Electronically signed by: Leslee Tovar MD 06/13/2023 01:45 AM DIRECTOR OF [employer]ION[employer] SALES Due to temporary technical issues with the PACS/Fluency reporting system, reports are being signed by the in house radiologists without review as a courtesy to insure prompt reporting. The interpreting radiologist is fully responsible for the content of the report.
== END ==
LOC: ER 22:25
DX: U07.1 COVID-19 (principal); J20.5 Acute bronchitis due to respiratory syncytial virus
CPT/HCPCS: 71045; 99283